=== PATIENT | male | born 1955 | race Two or more races ===

== ENCOUNTER 2017-03-14 05:10 | Emergency (ER) | payer SELFPAY ==
[~2017-03-14] VITALS: Ht 149.9 cm; Wt 45.0 kg
[2017-03-14] MEDS ORDERED: ONDANSETRON 4MG ODT PO ONE (07:00)
[2017-03-14 08:14] LABS: BASOPHILS % 0.6 % (0.0-2.0); EOSINOPHILS % 4.1 % (0.0-5.0); HEMATOCRIT. 32.7 % (42.0-52.0); HEMOGLOBIN. 10.7 g/dL (14.0-18.0); LYMPHOCYTES % 29.2 % (20.0-50.0); MEAN CORPUSCULAR HEMOGLOBIN 27.2 pg (28.0-32.0); MEAN CORPUSCULAR VOLUME 83.4 fL (80.0-94.0); MEAN PLATELET VOLUME 8.4 fl (7.4-10.4); MONOCYTES % 9.9 % (2.0-8.0); NEUTROPHILS % 56.2 % (40.0-76.0); PLATELET 217 x1000/uL (130-400); RED BLOOD CELL COUNT 3.92 mill/uL (4.7-6.1); RED CELL DISTRIBUTION WIDTH 17.2 % (11.6-14.6)
[2017-03-14 08:16] LABS: INR 1.1
[2017-03-14 09:01] LABS: CARBON DIOXIDE 24 mEq/L (21-32); CHLORIDE 102 mEq/L (98-107); TROPONIN I < 0.02 ng/mL (0.00-0.04)
[2017-03-14] MEDS ORDERED: SODIUM CHLORIDE 0.9% 1,000 ML IV ONE (10:30)
[2017-03-14 17:44] VITALS: BP 131/72
== END 2017-03-14 17:47 | disposition home or self-care (01) ==
LOC: ER 05:10
DX: R11.2 Nausea with vomiting, unspecified (principal); R10.13 Epigastric pain; R19.7 Diarrhea, unspecified; R06.02 Shortness of breath
CPT/HCPCS: 36415; 80053; 83605; 83690; 84484; 85025; 85610; 96360; 96361; 99285; Q0162; Z7610; 99284; J7030